=== PATIENT | female | born 1950 | race Caucasian/White ===

== ENCOUNTER 2025-08-29 09:18 | Emergency (ER) | payer MEDICARE, BC ==
[~2025-08-29] VITALS: Ht 172.7 cm; Wt 59.0 kg
--- NOTE | 2025-08-29 09:27 | ELECTROCARDIOGRAPH REPORT ---
[facility] Test Date: 2025-08-29 Test Time: 09:24:55 Pat Name: EDILMA BELTRAN Department: EMERGENCY ROOM [id number] Room: Gender: F Stock Control Clerk: PM : 1950 Requested By: TIMOTHY HOPKINS Order Number: [id number] Reading MD: Dr. LEONOR Rico Measurements Intervals [place] Rate: 130 P: 0 [place]: 0 QRS: 99 QRSD: 73 T: -77 QT: 286 QTc: 421 Interpretive Statements Atrial fibrillation Right axis deviation Probable anteroseptal infarct, old Repol abnrm suggests ischemia, diffuse leads Minimal ST elevation, lateral leads Baseline wander in lead(s) V3 Electronically Signed On 08-31-2025 11:45:[address] LEONOR Rico Please click the below link to view image of tracing.
[2025-08-29 09:36] LABS: MEAN PLATELET VOLUME 10.0 FL (7.4-10.4); RED CELL DISTRIBUTION WIDTH 13.4 % (11.5-14.5)
[2025-08-29] MEDS: diltiazem 5mg/ml 5ml inj. IV ONE (09:43)
[2025-08-29 09:59] LABS: CREATININE 1.18 MG/DL (0.40-0.90); PRO BRAIN NATRIURETIC PEPTIDE 2046 PG/ML (0-450); TOTAL CARBON DIOXIDE 30.9 MMOL/L (24-32); eCRCL 38 ML/MIN; eGFR 45 ML/MIN
--- NOTE | 2025-08-29 10:10 | RADIOLOGY REPORT ---
CHEST RADIOGRAPH Indication: CP Technique: Single frontal view of the chest was obtained Comparison: None FINDINGS: Lines and Tubes: None Lungs: No focal consolidation. Pleura: No effusion. No pneumothorax. Cardiomediastinal contours: Unremarkable Bones: No acute osseous abnormality. IMPRESSION: No acute cardiopulmonary disease.
--- NOTE | 2025-08-29 10:35 | Physician Documentation ---
History of Present Illness ~ Chief Complaint: Palpitations Stated Complaint: AFIB Time Seen by MD: 09:34 Mode of Arrival: POV, Ambulatory HPI 75 year old female presents reporting the acute onset of palpitations. She has a history of afib and has been cardioverted in the past. She does not take blood thinners regularly as her episodes of afib are intermittent. She denies chest p ain, fevers, N/V/D, cough, shortness of breath. Medication Reconciliation Allergies: Coded Allergies: Sulfa (Sulfonamide Antibiotics) (Verified Allergy, Unknown, 08/29/25) Review of Systems All Other Systems at this time: Reviewed and Negative Physical Exam Vital Signs: RN Vital Signs have been reviewed: Yes, Heart Rate: 47, Respiratory Rate: 16, BP: 122/73, Pulse Oximetry: 95, Weight: 59.000 Oxygen Flow Rate: 0 Physical Exam Gen: no distress HEENT: PERRL, EOMI no neck or facial swelling, uvula midline Pulm: normal WOB, no distress CTAB Cardiac: irregularly irregular Abd: soft, NT, ND Skin: w/d/i MSK: no deformity Neuro: nonfocal Psych: normal affect Progress Results/Orders Results/Orders Orders - TIMOTHY HOPKINS MD Chest,Single View (08/29/25 09:25) Monitor (08/29/25 09:25) Saline Lock (08/29/25 09:25) Oxygen (08/29/25 09:25) Hs Troponin I W Calculations (08/29/25 11:25) Hs Troponin I W Calculations (08/29/25 12:25) Electrocardiogram (08/29/25 10:20) Completed Orders - TIMOTHY HOPKINS MD Chest,Single View (08/29/25 09:25) Cbc/Diff (08/29/25 09:25) BMP (08/29/25 09:25) PBNP (08/29/25 09:25) Electrocardiogram (08/29/25 09:25) Hs Troponin I W Calculations (08/29/25 09:25) Diltiazem Iv (Cardizem Iv 5mg/Ml Inj.) (08/29/25 09:35) Medications Received in ER Medications (Trade) Dose Ordered Sig/Hari Route PRN Reason Start Time Stop Time Status Last Admin Dose Admin (Cardizem IV 5mg/ ml inj.) 10 mg ONCE ONCE IV 08/29/25 09:35 08/29/25 09:36 DC 08/29/25 09:43 10 MG Vital Signs 08/29/25 08/29/25 08/29/25 08/29/25 09:26 09:43 09:47 09:54 Pulse 127 114 72 Resp 15 B/P (MAP) 130/77 140/117 112/84 (93) Pulse Ox 100 100 O2 Flow Rate 0 08/29/25 10:23 Pulse 47 Resp 16 B/P (MAP) 122/73 (89) Pulse Ox 95 O2 Flow Rate 0 Laboratory Tests Test 08/29/25 09:23 White Blood Count 9.7 Red Blood Count 4.99 Hemoglobin 15.7 Hematocrit 46.7 H Mean Corpuscular Volume 93.6 Mean Corpuscular Hemoglobin 31.4 H Mean Corpuscular Hemoglobin Concent 33.6 Red Cell Distribution Width 13.4 Platelet Count 189 Mean Platelet Volume 10.0 Neutrophils (%) (Auto) 69.0 Lymphocytes (%) (Auto) 20.3 L Monocytes (%) (Auto) 8.2 Eosinophils (%) (Auto) 1.8 Basophils (%) (Auto) 0.7 Neutrophils # (Auto) 6.7 Lymphocytes # (Auto) 2.0 Monocytes # (Auto) 0.8 Eosinophils # (Auto) 0.2 Basophils # (Auto) 0.1 CBC Comment Sodium Level 142 Potassium Level 5.2 H Chloride Level 106 Carbon Dioxide Level 30.9 Anion Gap 5 L Blood Urea Nitrogen 22 H Creatinine 1.18 H Estimated GFR/1.73 m2 45 BUN/Creatinine Ratio 18.6 Glucose Level 111 H Calcium Level 9.0 Troponin I High Sensitivity 6 Pro-B-Type Natriuretic Peptide 2046 H Albumin 3.8 Chemistry Comments Medical Decision Making Additional information obtaine: N/A Findings 75 year old female with apparent acute onset afib/rvr. Provided one dose of diltiazem resulting shortly thereafter in her cardioversion to sinus bradycardia. She reports improved symptoms. Her workup is unremarkable including CBC/CMP, EKG interpreted by me demonstrated atrial fibrillation at rate of 130/min, no STEMI criteia, no other dysrhythmia. CXR interpreted by me demonstrated normal contours, no PTX, no PNA. Will road test, discharge with return precautions. Differential Dx:Considerations: Include: other Differential Dx:Considerations: Include other Additional Information Ddx = atrial fibrillation with RVR, atrial flutter, PSVT, dysrhythmia Departure Disposition: 01 HOME / SELF CARE / HOMELESS Impression: Primary Impression: Atrial fibrillation with RVR Condition: Improved Discharge Instructions: Atrial Fibrillation, Vtiy-rr-Hvfe Referrals: NO PRIMARY CARE PROVIDER (PCP) Education Educated: Patient Educated regarding: diagnosis, treatment, prognosis, need for follow up Critical Care Note Total Time (mins): 30 Critical Care Note This patient required 30 minutes of critical care time apart from separately billable procedures for continuous telemonitoring, management of cardiac dysrhythmia, and chemical cardioversion, as well as frequent reassessment. Signature Scribe Signature: . Attestation: . TIMOTHY HOPKINS MD Aug 29, 2025 10:35
--- NOTE | 2025-08-29 10:38 | ELECTROCARDIOGRAPH REPORT ---
[facility] Test Date: 2025-08-29 Test Time: 10:35:45 Pat Name: EDILMA BELTRAN Department: [facility] Patient ID: [facility]-[id number] Room: Gender: F Trimmer Meat: : 1950 Requested By: TIMOTHY HOPKINS Order Number: [id number] Reading MD: Dr. LEONOR Rico Measurements Intervals [place] Rate: 48 P: 83 [place]: 213 QRS: 67 QRSD: 81 T: 74 QT: 488 QTc: 436 Interpretive Statements Sinus bradycardia Ventricular premature complex Probable left atrial enlargement Anteroseptal infarct, age indeterminate Electronically Signed On 08-31-2025 11:46:[address] LEONOR Rico Please click the below link to view image of tracing.
[2025-08-29 10:43] VITALS: BP 130/73; PULSE 50; RESP 16; O2SAT 95
== END 2025-08-29 10:49 | disposition home or self-care (01) ==
LOC: ER 09:19
DX: I48.20 Chronic atrial fibrillation, unspecified (principal); Z88.2 Allergy status to sulfonamides
CPT/HCPCS: 36415; 71045; 80048; 83880; 84484; 85025; 93005; 96374; 99291; J3490; J7030